=== PATIENT | male | born 1960 | race Caucasian/White ===

== ENCOUNTER 2019-05-11 06:37 | Inpatient (IN) | payer BC ==
--- NOTE | 2019-05-02 15:23 | HP ---
HISTORY AND PHYSICAL: DATE OF ADMISSION/SURGERY: 05/11/19 DATE OF OFFICE VISIT: 04/30/19 SURGEON: Valerie Ruiz MD * (DICTATED BY NIC DURAN) PROCEDURE: Left total knee arthroplasty. CHIEF COMPLAINT: Left knee pain. HISTORY OF PRESENT ILLNESS: Mr. Zarate is a 58-year-old gentleman with complaints of left knee pain secondary to end-stage osteoarthritis. He has failed conservative treatment and elected to proceed with a left total knee arthroplasty. PAST MEDICAL HISTORY: Diabetes. PAST SURGICAL HISTORY: Umbilical hernia repair, left knee scope, tonsillectomy , adenoidectomy. CURRENT MEDICATIONS: 1. Humira. 2. Tramadol as needed. ALLERGIES: None. FAMILY HISTORY: Diabetes and cancer. SOCIAL HISTORY: He is a 58-year-old gentleman, lives with his and 2 children. He smokes a pack a day of cigarettes and drinks 2 beers per night. REVIEW OF SYSTEMS: A complete 14-point review of systems was reviewed with the patient. It was positive for diabetes. He denies history of DVT, PE, hepatitis , HIV, or anesthesia problems. PHYSICAL EXAMINATION GENERAL: He is a well developed, well nourished, in no acute distress. VITAL SIGNS: He stands 70 inches tall, weighs 226 pounds. Blood pressure is 132/88, heart rate 61. HEENT: Normocephalic, atraumatic. NECK: Supple. No palpable lymph nodes. PULMONARY: The lungs are clear to auscultation bilaterally. CARDIO: Regular rate and rhythm. Strong S1, S2. ABDOMEN: Soft, nontender, nondistended. NEUROLOGIC: He is alert and oriented x3. MUSCULOSKELETAL: Left lower extremity: Skin is intact. There are no open wounds or abrasions. He ambulates with an antalgic type gait. Range of motion is 10 to 120 degrees of flexion. He is able to dorsiflex and plantarflex. He has a 2+ dorsalis pedis pulse and intact sensation. ASSESSMENT AND PLAN: Mr. Zarate is a 58-year-old gentleman with end-stage osteoarthritis of the left knee. He has failed conservative treatment and elected to proceed with a left total knee arthroplasty. The surgery is scheduled for 05/11/[address] Ruiz discussed the risks and benefits of the surgery at today's visit and all of his questions were answered. He will follow up with Dr. Ruiz 2 weeks after the surgery. NIC DURAN [id number]/[facility] #: [id number] PRANAV
[~2019-05-11 06:37] MED LIST: Acetaminophen TAB* 325 MG PO ONE; Buffered Lidocaine 1% SYRIN* 1 ML/SYRINGE INTRADERM ONE; Gabapentin CAP(*) 300 MG PO ONE; Lactated Ringers 1000 ML Bag* 1,000 ML IV SCH; Tranexamic Acid 1,000 MG in NS 0.9% 50 ML* (outpatient use) IV SCH; celeCOXIB CAP* 200 MG PO ONE
--- OUTSIDE RECORDS SUMMARY | 2019-05-11 06:39 | XMS REPORT | Continuity of Care Document ---
:1960 External Reference #:[id number] Author Name Matt Soto NP (transmitted by agent of provider Simona Gilliam) Address [address], [place] [address] Care Team Providers Name Role Phone Pari Cadena MD - Internal Medicine Care Team Information Type Copy Examiner Problems Active Problems Provider Date Localized, primary osteoarthritis Valerie Ruiz M.D. Onset: 01/02/2018 Current tear of medial cartilage AND/OR meniscus Valerie Ruiz M.D. Onset: of knee Current tear of lateral cartilage AND/OR Valerie Ruiz M.D. Onset: 09/06/2018 meniscus of knee Stool DNA-based colorectal cancer screening Claudia Avila NP Onset: 2018 positive Psoriasis Claudia Avila NP Onset: 01/08/2019 Gastroesophageal reflux disease Claudia Avila NP Onset: 01/08/2019 Type 2 diabetes mellitus Matt Soto NP Onset: 03/05/2019 Social History Type Date Description Comments Sex Unknown Tobacco Use Start: Unknown Heavy tobacco smoker (more than 10 cigarettes/day) Smoking Status Reviewed: 04/12/19 Heavy tobacco smoker (more than 10 cigarettes/day) ETOH Use Currently consumes 21 drinks/week alcohol Tobacco Use Start: Unknown Heavy tobacco smoker 1 PPD since age 17 (more than 10 cigarettes/day) Recreational Drug Use Never Used Drugs Exercise Type/Frequency Exercises regularly Plays golf frequently Allergies, Adverse Reactions, Alerts Description No Known Drug Allergies Medications Active Medications SIG Qnty Indications Ordering Date Provider Nicotrol 1 cartridges every 168units F17.210 Matt Soto NP 04/12/2019 10mg 2 hours as needed Inhaler Humira Pen Unknown PNKT History Medications Suprep Bowel Prep Kit take according to 1units Claudia Avila, 01/08/2019 - your physician's PUNCHING MACHINE OPERATOR 03/04/2019 17.5-3.13-1.6GM/177ML instructions the Solution day before your procedure. split the dose as directed. Medications Administered in Office Medication SIG Qnty Indications Ordering Provider Date Depomedrol 40MG Valerie Ruiz M.D. 08/11/2018 Injection Depomedrol 40MG Valerie Ruiz M.D. 05/19/2018 Injection Depomedrol 40MG Valerie Ruiz M.D. 01/02/2018 Injection Trishaomedrol 40MG Valerie Ruiz M.D. 12/12/2015 Injection Immunizations Description No Information Available Vital Signs Date Vital Result Comment 04/12/2019 8:40am Height 70 inches 5'10" Weight 230.25 lb Heart Rate 54 /min BP Systolic 137 mmHg BP Diastolic 79 mmHg Body Temperature 97.7 F O2 % BldC Oximetry 97 % BMI (Body Mass Index) 33.0 kg/m2 04/04/2019 7:54am Height 70 inches 5'10" Weight 226.00 lb Heart Rate 59 /min BP Systolic 138 mmHg BP Diastolic 92 mmHg Body Temperature 96.1 F Pain Level 6 BMI (Body Mass Index) 32.4 kg/m2 Results Test Date Facility Test Result H/L Range Note Order [employer] [facility] In-House EKG <pending> 9 Laboratory test [employer] [facility] Hemoglobin A1c 6.1 5-7 finding 9 Laboratory test [facility] Surgical SEE RESULT 1 finding [address] [place] [address] [phone] CBC No Diff [facility] White Blood 6.8 10^3/uL Normal 3.5-10.[address] [place] [address] [phone] Red Blood Count 5.06 10^6/uL Normal 4.18-5.48 Hemoglobin 17.8 g/dL Normal 14.0-18.0 Hematocrit 50 % Normal 42-52 Mean Corpuscular Volume 100 fL High 80-94 Mean Corpuscular Hemoglobin 35 pg High 27-31 Mean Corpuscular HGB Conc 35 g/dL Normal 31-36 Red Cell Distribution Width 13 % Normal 10-15 Platelet Count 161 10^3/uL Normal 150-450 Mean Platelet Volume 8.9 fL Normal 7.4-10.4 Comp Metabolic 01/11/2019 [facility] Sodium 139 mmol/L Normal 135-[address] [place] [address] [phone] Potassium 4.1 mmol/L Normal 3.5-5.0 Chloride 106 mmol/L Normal 101-111 Co2 Carbon Dioxide 28 mmol/L Normal 22-32 Anion Gap 5 mmol/L Normal 2-11 Glucose 117 mg/dL High 70-100 Blood Urea Nitrogen 24 mg/dL Normal 6-24 Creatinine 1.03 mg/dL Normal 0.67-1.17 BUN/Creatinine Ratio 23.3 High 8-20 Calcium 9.6 mg/dL Normal 8.6-10.3 Total Protein 6.3 g/dL Low 6.4-8.9 Albumin 4.2 g/dL Normal 3.2-5.2 Globulin 2.1 g/dL Normal 2-4 Albumin/Globulin Ratio 2.0 Normal 1-3 Total Bilirubin 0.50 mg/dL Normal 0.2-1.0 Alkaline Phosphatase 55 U/L Normal 34-104 Alt 17 U/L Normal 7-52 Ast 15 U/L Normal 13-39 Egfr Non- 74.4 >60 Egfr 90.1 >60 2 Liver 01/11/2019 [facility] Direct 0.10 Normal 0.03-0.[address] Bilirubin mg/[place] [address] [phone] Indirect Bilirubin 0.4 mg/dL Normal 0.3-1.0 1 SEE RESULT BELOW Name: ALBAN NOBLE : [address]: Saúl Baldwin MD Acct: [id number] Unit: [id number] AGE: 58 Location: ENDO Re03/02/19 SEX: M Status: REG REF SPEC: [id number] RAVEN: 03/02/19- SUBM DR: Saúl Baldwin MD REQ: [id number] RECD: 03/02/19 STATUS: FLETCHER ARNETT DR: Sharmaine Grubbs MD _ ORDERED: LEVEL 4/4 FINAL DIAGNOSIS 1. Colon, 2 cm, biopsy: -- Tubular adenoma. -- No high grade dysplasia or malignancy. 2. Colon, hepatic flexure, biopsy: -- Hyperplastic polyp. 3. Colon, transverse, biopsy: -- Hyperplastic polyp. 4. Colon, sigmoid, biopsy: -- Hyperplastic polyp. CLINICAL HISTORY No symptoms; positive Cologuard; usual bowel habit - twice a day POST-OPERATIVE DIAGNOSIS Colonoscopy: to cecum - loopy but easy; excellent prep; conclusions: (4) polyps GROSS DESCRIPTION 1. The specimen is received in formalin labeled, Rectal Polyp at 2 cm Biopsy, and consists of two clemente-pink irregular to polypoid soft tissue fragments measuring 0.4 x 0.4 x 0.3 cm and 0.5 x 0.5 by up to 0.3 cm, which are entirely submitted in one cassette. CONTINUED ON NEXT PAGE DEPARTMENT OF PATHOLOGY, [address] [place] [address] Tom Marshall M.D. Director CHUCK # [id number] RUN DATE: 03/05/19 [facility] LAB LIVE PAGE 2 Patient: ALBAN NOBLE [id number] (Continued) GROSS DESCRIPTION (Continued) 2. The specimen is received in formalin labeled, Biopsy Hepatic Flexure Polyp, and consists of two clemente-pink irregular to polypoid soft tissue fragments measuring 0.5 x 0.5 x 0.2 cm and 0.6 x 0.4 x 0.3 cm, which are entirely submitted in one cassette. 3. The specimen is received in formalin labeled, Transverse Colon Polyp, and consists of two clemente-pink irregular to polypoid soft tissue fragments measuring 0.5 x 0.3 x 0.3 cm and 2.8 x 0.4 x 0.2 cm, which are entirely submitted in one cassette. 4. The specimen is received in formalin labeled, Sigmoid Colon Polyp, and consists of a 1.4 by up to 0.5 x 0.2 cm clemente-white pink U-shaped to polypoid soft tissue fragment, which is inked, serially sectioned and submitted entirely in one cassette. Signed by and Reported on: Tom Marshall MD 07/12 1233 END OF REPORT DEPARTMENT OF PATHOLOGY, [address] [place] [address] Tom Marshall M.D. Director [facility] # [id number] 2 Because ethnic data is not always readily available, this report includes an eGFR for both -Americans and non- Americans. The National Kidney Disease Education Program (NKDEP) does not endorse the use of the MDRD equation for patients that are not between the ages of 18 and 70, are , have extremes of body size, muscle mass, or nutritional status, or are non- or non-. According to the National Kidney Foundation, irrespective of diagnosis, the stage of the disease is based on the level of kidney function: Stage Description GFR(mL/min/1.73 m(2)) 1 Kidney damage with normal or decreased GFR 90 2 Kidney damage with mild decrease in GFR 60-89 3 Moderate decrease in GFR 30-59 4 Severe decrease in GFR 15-29 5 Kidney failure <15 (or dialysis) Procedures Date Code Description Status 04/12/2019 90832 EKG Tracing & Interpretation Completed 03/02/2019 05364 Colonoscopy Flexible Remove Tumor/Polyp/Lesion Snare Completed Technique 03/02/2019 68207359 Colonoscopy Completed Medical Devices Description No Information Available Encounters Type Date Location Provider Dx Diagnosis Office Visit 03/12/2019 [facility] Internal Matt Soto NP E11.9 Type 2 diabetes 10:00a Medicine - Ccmob mellitus without complications I10 Essential (primary) hypertension Office Visit 01/08/2019 9:15a [facility]astro[facility] Claudia Avila Z80.0 Family history PUNCHING MACHINE OPERATOR of malignant neoplasm of digestive organs Z12.11 Encounter for screening for malignant neoplasm of colon K21.9 Gastro-esophageal reflux disease without esophagitis L40.0 Psoriasis vulgaris Office Visit 11/02/2018 7:40a [facility]at[facility] Jase Keita MD L40.0 Psoriasis vulgaris Assessments Date Code Description Provider 04/12/2019 Z01.818 Encounter for other preprocedural Matt Brittany, PUNCHING MACHINE OPERATOR examination 04/12/2019 M17.12 Unilateral primary osteoarthritis, left knee Matt Brittany, PUNCHING MACHINE OPERATOR 04/12/2019 E11.9 Type 2 diabetes mellitus without Matt Brittany, PUNCHING MACHINE OPERATOR complications 04/12/2019 I10 Essential (primary) hypertension Matt Brittany, PUNCHING MACHINE OPERATOR 04/12/2019 L40.0 Psoriasis vulgaris Matt Brittany, PUNCHING MACHINE OPERATOR 04/12/2019 F17.210 Nicotine dependence, cigarettes, Mattmo Soto, PUNCHING MACHINE OPERATOR uncomplicated 04/04/2019 M25.562 Pain in left knee Valerie Ruiz M.D. 04/04/2019 M25.462 Effusion, left knee Valerie Ruiz M.D. 04/04/2019 M17.12 Unilateral primary osteoarthritis, left knee Valerie Ruiz M.D. 04/04/2019 M21.062 Valgus deformity, not elsewhere classified, Valerie Ruiz M.D. left knee 03/12/2019 E11.9 Type 2 diabetes mellitus without Matt Brittany, PUNCHING MACHINE OPERATOR complications 03/12/2019 I10 Essential (primary) hypertension Mattmo Soto, PUNCHING MACHINE OPERATOR 03/02/2019 D12.8 Benign neoplasm of rectum Saúl Baldwin MD 03/02/2019 K63.5 Polyp of colon Saúl Baldwin MD 03/02/2019 R19.5 Other fecal abnormalities Saúl Baldwin MD 01/08/2019 Z80.0 Family history of malignant neoplasm of Claudia Avila NP digestive organs 01/08/2019 Z12.11 Encounter for screening for malignant Claudia Avila NP neoplasm of colon 01/08/2019 K21.9 Gastro-esophageal reflux disease without Claudiadiane Avila, PUNCHING MACHINE OPERATOR esophagitis 01/08/2019 L40.0 Psoriasis vulgaris Claudia Avila, JARAD 11/02/2018 L40.0 Psoriasis vulgaris Jase Keita MD 10/30/2018 S83.272D Complex tear of lateral meniscus, current Valerie Ruiz M.D. injury, left knee, 10/30/2018 M17.12 Unilateral primary osteoarthritis, left knee Valerie Ruiz M.D. 10/30/2018 M25.562 Pain in left knee Valerie Ruiz M.D. Plan of Treatment Future Appointment(s):04/20/2019 11:40 am - Jase Keita MD at [facility] Kovclxdeeab38/18/2019 7:30 am - Valerie Ruiz M.D. at [facility].04/30/2019 8:45 am - Valerie Ruiz M.D. at [facility]09/12/2019 8:40 am - [facility] - Matt Soto, JARADZ01.818 Encounter for other preprocedural examinationComments:Try to reduce alcohol consumption to under two drinks daily , especially leading up to the surgery. As long as your labs are normal I do not see any contraindications to your surgery.You should avoid aspirin, NSAIDs ( ibuprofen, Motrin, aleve) and supplements 7 days prior to the procedure.M17.12 Unilateral primary osteoarthritis, left kneeE11.9 Type 2 diabetes mellitus without phmuxfchmqwpwC21 Essential (primary) fsgxkrlafqaaO53.0 Psoriasis kmajiwqiL05.210 Nicotine dependence, cigarettes, uncomplicatedNew Medication: Nicotrol 10 mg - 1 cartridges every 2 hours as neededComments:If you decide to quit smoking and need assistance please let me know. Functional Status Description No Information Available Mental Status Description No Information Available Referrals Description No Information Available
--- OUTSIDE RECORDS SUMMARY | 2019-05-11 06:39 | XMS REPORT | Continuity of Care Document ---
:1960 External Reference #:[id number] Author Name Valerie Ruiz M.D. 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 Problems Provider Date Localized, primary [...] (more than 10 cigarettes/day) Smoking Status Reviewed: 04/30/19 Heavy tobacco smoker (more than 10 cigarettes/day) ETOH Use Currently consumes 21 drinks/week alcohol Tobacco Use Start: Unknown Heavy tobacco smoker 1 PPD since age 17 (more than 10 cigarettes/day) Recreational Drug Use Never Used Drugs Exercise Type/Frequency Exercises regularly Plays golf frequently Allergies, Adverse Reactions, Alerts Description No Known Drug Allergies Medications Active Medications SIG Qnty Indications Ordering Date Provider Tramadol HCL 1-2 tablets every 28tabs Matt Soto NP 04/13/2019 50mg 12 hours as needed Tablets for pain. Nicotrol 1 cartridges every 168units F17.210 Matt Soto NP 04/12/2019 10mg 2 hours as needed Inhaler Humira Pen Unknown PNKT History Medications Suprep Bowel Prep Kit take according to 1units Claudia Avila, 01/08/2019 - your physician's BOAT TESTER 03/04/2019 17.5-3.13-1.6GM/177ML instructions the Solution day before your procedure. split the dose as directed. Medications Administered in Office Medication SIG Qnty Indications Ordering Provider Date Depomedrol 40MG Valerie Ruiz M.D. 08/11/2018 Injection Depomedrol 40MG Valerie Ruiz M.D. 05/19/2018 Injection Depomedrol 40MG Valerie Ruiz M.D. 01/02/2018 Injection Depomedrol 40MG Valerie Ruiz M.D. 12/12/2015 Injection Immunizations Description No Information Available Vital Signs Date Vital Result Comment 04/30/2019 8:48am Height 70 inches 5'10" Weight 230.00 lb Heart Rate 61 /min BP Systolic 132 mmHg BP Diastolic 88 mmHg Respiratory Rate 18 /min Body Temperature 97.2 F Pain Level 3 BMI (Body Mass Index) 33.0 kg/m2 04/12/2019 8:40am Height 70 inches 5'10" Weight 230.25 lb Heart Rate 54 /min BP Systolic 137 mmHg BP Diastolic 79 mmHg Body Temperature 97.7 F O2 % BldC Oximetry 97 % BMI (Body Mass Index) 33.0 kg/m2 Results Test Date Facility Test Result H/L Range Note Type & Screen 04/20/2019 [facility] Patient Blood A Positive [address] [place] [address] [phone] Antibody Screen NEGATIVE CBC Auto 04/20/2019 [facility] White Blood 6.2 10^3/uL Normal 3.5-10.[address] [place] [address] [phone] Red Blood Count 4.98 10^6/uL Normal 4.18-5.48 Hemoglobin 17.4 g/dL Normal 14.0-18.0 Hematocrit 49 % Normal 42-52 Mean Corpuscular Volume 98 fL High 80-94 Mean Corpuscular Hemoglobin 35 pg High 27-31 Mean Corpuscular HGB Conc 36 g/dL Normal 31-36 Red Cell Distribution Width 14 % Normal 10-15 Platelet Count 169 10^3/uL Normal 150-450 Mean Platelet Volume 9.3 fL Normal 7.4-10.4 Abs Neutrophils 3.6 10^3/uL Normal 1.5-7.7 Abs Lymphocytes 1.7 10^3/uL Normal 1.0-4.8 Abs Monocytes 0.8 10^3/uL Normal 0-0.8 Abs Eosinophils 0.1 10^3/uL Normal 0-0.6 Abs Basophils 0.1 10^3/uL Normal 0-0.2 Abs Nucleated RBC 0.0 10^3/uL Granulocyte % 57.5 % Lymphocyte % 26.6 % Monocyte % 13.0 % Eosinophil % 1.8 % Basophil % 1.1 % Nucleated Red Blood Cells % 0.0 Urine Culture And 04/20/2019 [facility] Urine SEE RESULT [address] Culture BELOW [place], [place] [id number] [phone] Laboratory test 04/20/2019 [facility] Partial 45.1 seconds High 26.[address] Thrombo Time -38. [place] [address] PTT 0 [phone] Inr/Protime 04/20/2019 [facility] Inr 0.94 Normal 0.[address] -1.0 [place] [address] 9 [phone] Urinalysis Profile 04/20/2019 [facility] Urine Color Yellow [address] [place] [address] [phone] Urine Appearance Clear Urine Specific [place] 1.021 Normal 1.010-1.030 Urine pH 6.0 Normal 5-9 Urine Urobilinogen Negative Negative Urine Ketones Negative Negative Urine Protein 1+(30 mg/dL) Abnormal Negative Urine Leukocytes Negative Negative Urine Blood 2+ Abnormal Negative Urine Nitrite Negative Negative Urine Bilirubin Negative Negative Urine Glucose Negative Negative Urine White Blood Cell Trace(0-5/hpf) Absent Urine Red Blood Cell 2+(6-10/hpf) Abnormal Absent Urine Bacteria Absent Absent Comp Metabolic 04/20/2019 [facility] Sodium 139 mmol/L Normal 135-[address] [place] [address] [phone] Potassium 4.3 mmol/L Normal 3.5-5.0 Chloride 107 mmol/L Normal 101-111 Co2 Carbon Dioxide 27 mmol/L Normal 22-32 Anion Gap 5 mmol/L Normal 2-11 Glucose 102 mg/dL High 70-100 Blood Urea Nitrogen 20 mg/dL Normal 6-24 Creatinine 0.83 mg/dL Normal 0.67-1.17 BUN/Creatinine Ratio 24.1 High 8-20 Calcium 9.3 mg/dL Normal 8.6-10.3 Total Protein 6.2 g/dL Low 6.4-8.9 Albumin 4.3 g/dL Normal 3.2-5.2 Globulin 1.9 g/dL Low 2-4 Albumin/Globulin Ratio 2.3 Normal 1-3 Total Bilirubin 0.40 mg/dL Normal 0.2-1.0 Alkaline Phosphatase 49 U/L Normal 34-104 Alt 16 U/L Normal 7-52 Ast 14 U/L Normal 13-39 Egfr Non- 95.5 >60 Egfr 115.5 >60 4 Quantiferon-TB 04/20/2019 [facility] QuantiferonTb Negative Negative [address] [place] [place] [address] [phone] TB1 Ag minus Nil Result 0.00 IU/mL TB2 Ag minus Nil Result -0.01 IU/mL Mitogen minus Nil Result 13.58 IU/mL Nil Result 0.07 IU/mL Laboratory test 03/12/2019 [facility] Hemoglobin A1c 6.1 5-7 finding Laboratory test 03/02/2019 [facility] Surgical SEE RESULT [address] [place] [address] [phone] CBC No Diff 01/11/2019 [facility] White Blood 6.8 10^3/uL Normal 3.5-10.[address] [place] [address] [phone] Red Blood Count 5.06 10^6/uL Normal 4.18-5.48 Hemoglobin 17.8 g/dL Normal 14.0-18.0 Hematocrit 50 % Normal 42-52 Mean Corpuscular Volume 100 fL High 80-94 Mean Corpuscular Hemoglobin 35 pg High 27-31 Mean Corpuscular HGB Conc 35 g/dL Normal 31-36 Red Cell Distribution Width 13 % Normal 10-15 Platelet Count 161 10^3/uL Normal 150-450 Mean Platelet Volume 8.9 fL Normal 7.4-10.4 Comp Metabolic 01/11/2019 [facility] Sodium 139 mmol/L Normal 135-[address] [place] [address] [phone] Potassium 4.1 mmol/L Normal 3.5-5.0 Chloride 106 [...] Egfr Non- 74.4 >60 Egfr 90.1 >60 7 Liver 01/11/2019 [facility] Direct 0.10 Normal 0.03-0.[address] Bilirubin mg/[place] [address] [phone] Indirect Bilirubin 0.4 mg/dL Normal 0.3-1.0 1 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 END OF REPORT DEPARTMENT OF PATHOLOGY, [address] [place] [address] Tom Marshall M.D. Director [facility] # [id number] 3 Standard intensity warfarin therapeutic range: 2.0-3.0 High intensity warfarin therapeutic range: 2.5-3.5 4 Because ethnic data is not always readily [...] 15-29 5 Kidney failure <15 (or dialysis) 5 M. tuberculosis infection NOT likely 6 SEE RESULT BELOW Name: ALBAN NOBLE : [address]: Saúl Baldwin MD Acct: [id number] Unit: [id number] AGE: 58 Location: ENDO Re03/02/19 SEX: M Status: REG REF SPEC: [id number] RAVEN: 03/02/19- SUBM DR: Saúl Baldwin MD REQ: [id number] RECD: 03/02/19204 STATUS: FLETCHER ARNETT DR: Sharmaine Grubbs MD [...] CONTINUED ON NEXT PAGE DEPARTMENT OF PATHOLOGY, [address] [place] [address] Tom Marshall M.D. Director [facility] # [id number] RUN DATE: 03/05/19 [facility] LAB LIVE PAGE 2 Patient: ALBAN NOBLE Delphine [id number] (Continued) GROSS DESCRIPTION (Continued) 2. The specimen [...] 1233 END OF REPORT DEPARTMENT OF PATHOLOGY, [address] [place] [address] Tom Marshall M.D. Director [facility] # [id number] 7 Because ethnic data is not always readily [...] dialysis) Procedures Date Code Description Status 04/12/2019 34391 EKG Tracing & Interpretation Completed 03/02/2019 25690 Colonoscopy Flexible Remove Tumor/Polyp/Lesion Snare Completed Technique 03/02/2019 40957774 Colonoscopy Completed Medical Devices Description No Information Available Encounters Type Date Location Provider Dx Diagnosis Office Visit 04/20/2019 [facility] Dermatology Jase Keita MD L40.0 Psoriasis vulgaris 11:40a Z79.899 Other half-way (current) drug therapy Office Visit 04/12/2019 8:40a [facility] Internal Matt Soto, Z01.818 Encounter for other Medicine - BOAT TESTER preprocedural Ccmob examination M17.12 Unilateral primary osteoarthritis, left knee E11.9 Type 2 diabetes mellitus without complications I10 Essential (primary) hypertension L40.0 Psoriasis vulgaris F17.210 Nicotine dependence, cigarettes, uncomplicated Office Visit 04/04/2019 8:00a [facility] Valerie Ruiz, M25.562 Pain in left at [place] M.D. knee M25.462 Effusion, left knee M17.12 Unilateral primary osteoarthritis, left knee M21.062 Valgus deformity, not elsewhere classified, left knee Office Visit 03/12/2019 10:00a [facility] Internal Matt Soto, E11.9 Type 2 diabetes Medicine - Ccmob BOAT TESTER mellitus without complications I10 Essential (primary) hypertension Office Visit 01/08/2019 9:15a [facility] Gastroenterology Claudia Avila, Z80.0 Family history BOAT TESTER of malignant neoplasm of digestive organs Z12.11 Encounter for screening for malignant neoplasm of colon K21.9 Gastro-esophageal reflux disease without esophagitis L40.0 Psoriasis vulgaris Office Visit 11/02/2018 7:40a [facility] Dermatology Jase Keita MD L40.0 Psoriasis vulgaris Assessments Date Code Description Provider 04/20/2019 L40.0 Psoriasis vulgaris Jase Keita MD 04/20/2019 Z79.899 Other half-way (current) drug therapy Jase Keita MD 04/12/2019 R00.1 Bradycardia, unspecified Pari Cadena MD 04/12/2019 Z01.818 Encounter for other preprocedural Matt Brittany, JARAD examination 04/12/2019 M17.12 Unilateral primary osteoarthritis, left knee Matt Brittany, BOAT TESTER 04/12/2019 E11.9 Type 2 diabetes mellitus without Matt Brittany, BOAT TESTER complications 04/12/2019 I10 Essential (primary) hypertension Mattmo Soto, BOAT TESTER 04/12/2019 L40.0 Psoriasis vulgaris Matt Brittany, BOAT TESTER 04/12/2019 F17.210 Nicotine dependence, cigarettes, Matt Soto, JARAD uncomplicated 04/04/2019 M25.562 Pain in left knee Valerie Ruiz M.D. 04/04/2019 M25.462 Effusion, left knee Valerie Ruiz M.D. 04/04/2019 M17.12 Unilateral primary osteoarthritis, left knee Valerie Ruiz M.D. 04/04/2019 M21.062 Valgus deformity, not elsewhere classified, Valerie Ruiz M.D. left knee 03/12/2019 E11.9 Type 2 diabetes mellitus without Matt Brittany, BOAT TESTER complications 03/12/2019 I10 Essential (primary) hypertension Matt Soto, JARAD 03/02/2019 D12.8 Benign neoplasm of rectum Saúl Baldwin MD 03/02/2019 K63.5 Polyp of colon Saúl Baldwin MD 03/02/2019 R19.5 Other fecal abnormalities Saúl Baldwin MD 01/08/2019 Z80.0 Family history of malignant neoplasm of Claudia Avila, BOAT TESTER digestive organs 01/08/2019 Z12.11 Encounter for screening for malignant Claudia Avila, BOAT TESTER neoplasm of colon 01/08/2019 K21.9 Gastro-esophageal reflux disease without Claudia Avila, BOAT TESTER esophagitis 01/08/2019 L40.0 Psoriasis vulgaris Claudia Avila, BOAT TESTER 11/02/2018 L40.0 Psoriasis vulgaris Jase Keita MD 10/30/2018 S83.272D Complex tear of lateral meniscus, current Valerie Ruiz M.D. injury, left knee, 10/30/2018 M17.12 Unilateral primary osteoarthritis, left knee Valerie Ruiz M.D. 10/30/2018 M25.562 Pain in left knee Valerie Ruiz M.D. Plan of Treatment Future Appointment(s):05/21/2019 9:15 am - Valerie Ruiz M.D. at [facility]05/11/2019 7:30 am - TARA Monge at [facility]05/11/2019 7:30 am - NIC Schultz at [facility] at [id number]/18/2019 7:40 am - Jase Keita MD at [facility]05/11/2019 7:30 am - Valerie Ruiz M.D. at [facility] at [id number]/12/2019 8:40 am - Matt Soto NP at [facility] Internal Medicine - [facility] Functional Status Description No Information Available Mental Status Description No Information Available Referrals Description No Information Available
--- OUTSIDE RECORDS SUMMARY | 2019-05-11 06:40 | XMS REPORT | Continuity of Care Document ---
:1960 External Reference #:[id number] Author Name Valerie Ruiz M.D. 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 Problems Provider Date Localized, primary [...] (more than 10 cigarettes/day) Smoking Status Reviewed: 04/04/19 Heavy tobacco smoker (more than 10 cigarettes/day) ETOH Use Currently consumes 21 drinks/week alcohol Tobacco Use Start: Unknown Heavy tobacco smoker 1 PPD since age 17 (more than 10 cigarettes/day) Recreational Drug Use Never Used Drugs Exercise Type/Frequency Exercises regularly Plays golf frequently Allergies, Adverse Reactions, Alerts Description No Known Drug Allergies Medications Active Medications SIG Qnty Indications Ordering Provider Date Humira Pen Unknown PNKT History Medications Suprep Bowel Prep Kit take according to 1units Claudia Avila 01/08/2019 - your physician's DIRECTOR ON AIR 03/04/2019 17.5-3.13-1.6GM/177ML instructions the Solution day before [...] Available Vital Signs Date Vital Result Comment 04/04/2019 7:54am Height 70 inches 5'10" Weight 226.00 lb Heart Rate 59 /min BP Systolic 138 mmHg BP Diastolic 92 mmHg Body Temperature 96.1 F Pain Level 6 BMI (Body Mass Index) 32.4 kg/m2 03/12/2019 9:53am Height 70 inches 5'10" Weight 223.38 lb Heart Rate 60 /min BP Systolic 141 mmHg BP Diastolic 88 mmHg BP Systolic Recheck 144 mmHg BP Diastolic Recheck 90 mmHg Body Temperature 98.1 F O2 % BldC Oximetry 97 % BMI (Body Mass Index) 32.0 kg/m2 Results Test Date Facility Test Result H/L Range Note Laboratory test [facility] In House Hemoglobin A1c 6.1 5-7 finding 9 Laboratory test [facility] Surgical SEE RESULT 1 finding [address] [place] [address] [phone] CBC No Diff [facility] White Blood 6.8 10^3/uL Normal 3.5-10.[address] [place] [address] [phone] Red Blood Count 5.06 10^6/uL Normal 4.18-5.48 Hemoglobin 17.8 g/dL Normal 14.0-18.0 Hematocrit 50 % Normal 42-52 Mean Corpuscular Volume 100 fL High 80-94 Mean Corpuscular Hemoglobin 35 pg High 27-31 Mean Corpuscular HGB Conc 35 g/dL Normal 31-36 Red Cell Distribution Width 13 % Normal 10-15 Platelet Count 161 10^3/uL Normal 150-450 Mean Platelet Volume 8.9 fL Normal 7.4-10.4 Comp Metabolic 01/11/2019 [facility] Sodium 139 mmol/L Normal 135-[address] [place] [address] [phone] Potassium 4.1 mmol/L Normal 3.5-5.0 Chloride 106 [...] >60 Egfr 90.1 >60 2 Liver 01/11/2019 [facility] Direct 0.10 Normal 0.03-0.[address] Bilirubin mg/[place] [address] [phone] Indirect Bilirubin 0.4 mg/dL Normal 0.3-1.0 1 SEE RESULT BELOW Name: LASHA NOBLE Delphine : [address]: Saúl Baldwin MD Acct: [id number] Unit: [id number] AGE: 58 Location: ENDO Re03/02/19 SEX: M Status: REG REF SPEC: [id number] RAVEN: 03/02/19- SUBM DR: Saúl Baldwin MD REQ: [id number] RECD: 03/02/19 STATUS: FLETCHER ARNETT DR: Sharmaine [...] CONTINUED ON NEXT PAGE DEPARTMENT OF PATHOLOGY, [address] [place] [address] Tom Marshall M.D. Director [facility] # [id number] RUN DATE: 03/05/19 [facility] LAB LIVE PAGE 2 Patient: LASHA NOBLE [id number] (Continued) GROSS DESCRIPTION (Continued) 2. The specimen [...] 1233 END OF REPORT DEPARTMENT OF PATHOLOGY, [address] [place] [address] Tom Marshall M.D. Director [facility] # [id number] 2 Because ethnic data is not always [...] (or dialysis) Procedures Date Code Description Status 03/02/2019 65696 Colonoscopy Flexible Remove Tumor/Polyp/Lesion Snare Completed Technique 03/02/2019 16492920 Colonoscopy Completed Medical Devices Description No Information Available Encounters Type Date Location Provider Dx Diagnosis Office Visit 03/12/2019 [facility] Internal Matt Soto NP E11.9 Type 2 diabetes 10:00a Medicine - [facility] mellitus without complications I10 Essential (primary) hypertension Office Visit 01/08/2019 9:15a [facility] Gastroenterology Claudia Avila, Z80.0 Family history DIRECTOR ON AIR of malignant neoplasm of digestive organs Z12.11 Encounter for screening for malignant neoplasm of colon K21.9 Gastro-esophageal reflux disease without esophagitis L40.0 Psoriasis vulgaris Office Visit 11/02/2018 7:40a [facility] Dermatology Jase Keita MD L40.0 Psoriasis vulgaris Assessments Date Code Description Provider 04/04/2019 M25.562 Pain in left knee Valerie Ruiz M.D. 04/04/2019 M25.462 Effusion, left knee Valerie Ruiz M.D. 04/04/2019 M17.12 Unilateral primary osteoarthritis, left knee Valerie Joseph , M.D. 04/04/2019 M21.062 Valgus deformity, not elsewhere classified, Valerie Ruiz M.D. left knee 03/12/2019 E11.9 Type 2 diabetes mellitus without Matt Soto NP complications 03/12/2019 I10 Essential (primary) hypertension Matt Soto NP 03/02/2019 D12.8 Benign neoplasm of rectum Saúl Baldwin MD 03/02/2019 K63.5 Polyp of colon Saúl Baldwin MD 03/02/2019 R19.5 Other fecal abnormalities Saúl Baldwin MD 01/08/2019 Z80.0 Family history of malignant neoplasm of Claudia Avila NP digestive organs 01/08/2019 Z12.11 Encounter for screening for malignant Claudia Avila NP neoplasm of colon 01/08/2019 K21.9 Gastro-esophageal reflux disease without Claudia Avila NP esophagitis 01/08/2019 L40.0 Psoriasis vulgaris Claudia Avila NP 11/02/2018 L40.0 Psoriasis vulgaris Jase Keita MD 10/30/2018 S83.272D Complex tear of lateral meniscus, current Valerie Ruiz M.D. injury, left knee, 10/30/2018 M17.12 Unilateral primary osteoarthritis, left knee Valerie Ruiz M.D. 10/30/2018 M25.562 Pain in left knee Valerie Ruiz M.D. Plan of Treatment Future Appointment(s):04/30/2019 8:45 am - Valerie Ruiz M.D. at [facility]09/12/2019 8:40 am - [facility] Valerie Ruiz M.D.M25.562 Pain in left kneeFollow up:Follow up: 7-10 days before [id number] Effusion, left kneeM17.12 Unilateral primary osteoarthritis, left kneeM21.062 Valgus deformity, not elsewhere classified, left knee Functional Status Description No Information Available Mental Status Description No Information Available Referrals Description No Information Available
--- OUTSIDE RECORDS SUMMARY | 2019-05-11 06:40 | XMS REPORT | Continuity of Care Document ---
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 Problems Provider Date Localized, primary [...] 1units Claudia Avila, 01/08/2019 - your physician's WORK ENVIRONMENT SAFETY INSPECTOR 03/04/2019 17.5-3.13-1.6GM/177ML instructions the Solution day before [...] Facility Test Result H/L Range Note Order [facility] In-House EKG <pending> 9 Laboratory test [facility] In House Hemoglobin A1c 6.1 5-7 finding 9 Laboratory test [facility] Surgical SEE RESULT 1 finding [address] [place] [address] [phone] CBC No Diff [facility] White Blood 6.8 10^3/uL Normal 3.5-10.[address] [place] [address] [phone] Red Blood Count 5.06 10^6/uL Normal 4.18-5.48 Hemoglobin 17.8 g/dL Normal 14.0-18.0 Hematocrit 50 % Normal 42-52 Mean Corpuscular Volume 100 fL High 80-94 Mean Corpuscular Hemoglobin 35 pg High 27-31 Mean Corpuscular HGB Conc 35 g/dL Normal 31-36 Red Cell Distribution Width 13 % Normal 10-15 Platelet Count 161 10^3/uL Normal 150-450 Mean Platelet Volume 8.9 fL Normal 7.4-10.4 Comp Metabolic 01/11/2019 [facility] Sodium 139 mmol/L Normal 135-[address] [place] [address] [phone] Potassium 4.1 mmol/L Normal 3.5-5.0 Chloride 106 [...] >60 Egfr 90.1 >60 2 Liver 01/11/2019 [facility] Direct 0.10 Normal 0.03-0.[address] Bilirubin mg/[place] [address] [phone] Indirect Bilirubin 0.4 mg/dL Normal 0.3-1.0 1 SEE RESULT BELOW Name: ALBAN NOBLE : [address]: Saúl Baldwin MD Acct: [id number] Unit: [id number] AGE: 58 Location: ENDO Re03/02/19 SEX: M Status: REG REF SPEC: [id number] RAVEN: 03/02/19- SUBM DR: Saúl Baldwin MD REQ: [id number] RECD: 03/02/19 STATUS: FLETCHER ARNETT DR: Sharmaine [...] CONTINUED ON NEXT PAGE DEPARTMENT OF PATHOLOGY, [address] [place] [address] Tom Marshall M.D. Director [facility] # [id number] RUN DATE: 03/05/19 [facility] LAB LIVE PAGE 2 Patient: ALBAN NOBLE [id number] (Continued) GROSS DESCRIPTION (Continued) 2. The specimen [...] 1233 END OF REPORT DEPARTMENT OF PATHOLOGY, [address] [place] [address] Tom Marshall M.D. Director [facility] # [id number] 2 Because ethnic data is not always [...] dialysis) Procedures Date Code Description Status 04/12/2019 45518 EKG Tracing & Interpretation Completed 03/02/2019 51762 Colonoscopy Flexible Remove Tumor/Polyp/Lesion Snare Completed Technique 03/02/2019 80410538 Colonoscopy Completed Medical Devices Description No Information Available Encounters Type Date Location Provider Dx Diagnosis Office Visit 03/12/2019 [facility] Internal Matt Soto NP E11.9 Type 2 diabetes 10:00a Medicine - Ccmob mellitus without complications I10 Essential (primary) hypertension Office Visit 01/08/2019 9:15a [facility] Gastroenterology Claudia vAila Z80.0 Family history WORK ENVIRONMENT SAFETY INSPECTOR of malignant neoplasm of digestive organs Z12.11 Encounter for screening for malignant neoplasm of colon K21.9 Gastro-esophageal reflux disease without esophagitis L40.0 Psoriasis vulgaris Office Visit 11/02/2018 7:40a [facility] Dermatology Jase Keita MD L40.0 Psoriasis vulgaris Assessments Date Code Description Provider 04/12/2019 Z01.818 Encounter for other preprocedural Matt Brittany, WORK ENVIRONMENT SAFETY INSPECTOR examination 04/12/2019 M17.12 Unilateral primary osteoarthritis, left knee Matt Brittany, WORK ENVIRONMENT SAFETY INSPECTOR 04/12/2019 E11.9 Type 2 diabetes mellitus without Matt Brittany, WORK ENVIRONMENT SAFETY INSPECTOR complications 04/12/2019 I10 Essential (primary) hypertension Matt Brittany, WORK ENVIRONMENT SAFETY INSPECTOR 04/12/2019 L40.0 Psoriasis vulgaris Matt Brittany, WORK ENVIRONMENT SAFETY INSPECTOR 04/12/2019 F17.210 Nicotine dependence, cigarettes, Mattmo Soto, WORK ENVIRONMENT SAFETY INSPECTOR uncomplicated 04/04/2019 M25.562 Pain in left knee Valerie Ruiz M.D. 04/04/2019 M25.462 Effusion, left knee Valerie Ruiz M.D. 04/04/2019 M17.12 Unilateral primary osteoarthritis, left knee Valerie Ruiz M.D. 04/04/2019 M21.062 Valgus deformity, not elsewhere classified, Valerie Ruiz M.D. left knee 03/12/2019 E11.9 Type 2 diabetes mellitus without Matt Brittany, WORK ENVIRONMENT SAFETY INSPECTOR complications 03/12/2019 I10 Essential (primary) hypertension Mattmo Soto, WORK ENVIRONMENT SAFETY INSPECTOR 03/02/2019 D12.8 Benign neoplasm of rectum Saúl Baldwin MD 03/02/2019 K63.5 Polyp of colon Saúl Baldwin MD 03/02/2019 R19.5 Other fecal abnormalities Saúl Baldwin MD 01/08/2019 Z80.0 Family history of malignant neoplasm of Claudia Avila NP digestive organs 01/08/2019 Z12.11 Encounter for screening for malignant Claudia Avila NP neoplasm of colon 01/08/2019 K21.9 Gastro-esophageal reflux disease without Claudiadiane Avila, WORK ENVIRONMENT SAFETY INSPECTOR esophagitis 01/08/2019 L40.0 Psoriasis vulgaris Claudia Avila, JARAD 11/02/2018 L40.0 Psoriasis vulgaris Jase Keita MD 10/30/2018 S83.272D Complex tear of lateral meniscus, current Valerie Ruiz M.D. injury, left knee, 10/30/2018 M17.12 Unilateral primary osteoarthritis, left knee Valerie Ruiz M.D. 10/30/2018 M25.562 Pain in left knee Valerie Ruiz M.D. Plan of Treatment Future Appointment(s):04/20/2019 11:40 am - Jase Keita MD at [facility] Wbikfkskkdd63/18/2019 7:30 am - Valerie Ruiz M.D. at [facility].04/30/2019 8:45 am - Valerie Ruiz M.D. at [facility]09/12/2019 8:40 am - Matt Soto NP at [facility] - Matt Soto, JARADZ01.818 Encounter for other [...] left kneeE11.9 Type 2 diabetes mellitus without lvczfgnpjtwnrA86 Essential (primary) dwatzosoyigvI09.0 Psoriasis iowlbskaV11.210 Nicotine dependence, cigarettes, uncomplicatedNew Medication: Nicotrol 10 mg - 1 cartridges every 2 hours as neededComments:If you decide to quit smoking and need assistance please let me know. Functional Status Description No Information Available Mental Status Description No Information Available Referrals Description No Information Available
--- OUTSIDE RECORDS SUMMARY | 2019-05-11 06:40 | XMS REPORT | Continuity of Care Document ---
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 split the dose as directed. Aspirin take 1 by mouth 28tabs Valerie Ruiz, 09/20/2018 - 325mg Tablets twice a day for two M.D. 10/29/2018 weeks Percocet 1 by mouth every 6 28tabs Valerie Ruiz, 09/20/2018 - 5-325mg Tablets hours as needed M.D. 10/01/2018 pain Medications Administered in Office Medication SIG Qnty Indications Ordering Provider Date Depomedrol 40MG Valerie Ruiz M.D. 08/11/2018 Injection Depomedrol 40MG Valerie Ruiz M.D. 05/19/2018 Injection Depomedrol 40MG Valerie Ruiz M.D. 01/02/2018 Injection Depomedrol 40MG Valerie Ruiz M.D. 12/12/2015 Injection Immunizations Description No Information Available Vital Signs Date Vital Result Comment 03/12/2019 9:53am Height 70 inches 5'10" Weight 223.38 lb Heart Rate 60 /min BP Systolic 141 mmHg BP Diastolic 88 mmHg BP Systolic Recheck 144 mmHg BP Diastolic Recheck 90 mmHg Body Temperature 98.1 F O2 % BldC Oximetry 97 % BMI (Body Mass Index) 32.0 kg/m2 01/08/2019 9:17am Height 70 inches 5'10" Weight 230.00 lb Heart Rate 62 /min BP Systolic 140 mmHg BP Diastolic 84 mmHg O2 % BldC Oximetry 96 % BMI (Body Mass Index) 33.0 kg/m2 Results Test Date Facility Test Result H/L Range Note Laboratory test [facility] In House Hemoglobin A1c 6.1 5-7 finding 9 Laboratory test [facility] Surgical SEE RESULT 1 finding [address] [place] [address] [phone] CBC No Diff [facility] White Blood 6.8 10^3/uL Normal 3.5-10.[address] [place] [address] [phone] Red Blood Count 5.06 10^6/uL Normal 4.18-5.48 Hemoglobin 17.8 g/dL Normal 14.0-18.0 Hematocrit 50 % Normal 42-52 Mean Corpuscular Volume 100 fL High 80-94 Mean Corpuscular Hemoglobin 35 pg High 27-31 Mean Corpuscular HGB Conc 35 g/dL Normal 31-36 Red Cell Distribution Width 13 % Normal 10-15 Platelet Count 161 10^3/uL Normal 150-450 Mean Platelet Volume 8.9 fL Normal 7.4-10.4 Comp Metabolic 01/11/2019 [facility] Sodium 139 mmol/L Normal 135-[address] [place] [address] [phone] Potassium 4.1 mmol/L Normal 3.5-5.0 Chloride 106 [...] >60 Egfr 90.1 >60 2 Liver 01/11/2019 [facility] Direct 0.10 Normal 0.03-0.[address] Bilirubin mg/[place] [address] [phone] Indirect Bilirubin 0.4 mg/dL Normal 0.3-1.0 Lipid Profile 09/18/2018 [facility] Triglycerides 198 mg/dL 3, 4 (Trig/Chol/HDL) [address] [place] [address] [phone] Cholesterol 143 mg/dL 5 HDL Cholesterol 35.8 mg/dL 6 LDL Cholesterol 68 mg/dL 7 CBC Auto 09/18/2018 [facility] White Blood 8.2 10^3/uL Normal 3.5-10.[address] [place] [address] [phone] Red Blood Count 5.07 10^6/uL Normal 4.00-5.40 Hemoglobin 17.6 g/dL Normal 14.0-18.0 Hematocrit 51 % Normal 42-52 Mean Corpuscular Volume 100 fL High 80-94 Mean Corpuscular Hemoglobin 35 pg High 27-31 Mean Corpuscular HGB Conc 35 g/dL Normal 31-36 Red Cell Distribution Width 14 % Normal 10.5-15 Platelet Count 167 10^3/uL Normal 150-450 Mean Platelet Volume 9.5 fL Normal 7.4-10.4 Abs Neutrophils 5.5 10^3/uL Normal 1.5-7.7 Abs Lymphocytes 1.6 10^3/uL Normal 1.0-4.8 Abs Monocytes 0.8 10^3/uL Normal 0-0.8 Abs Eosinophils 0.1 10^3/uL Normal 0-0.6 Abs Basophils 0.1 10^3/uL Normal 0-0.2 Abs Nucleated RBC 0 10^3/uL Granulocyte % 67.7 % Lymphocyte % 19.6 % Monocyte % 10.2 % Eosinophil % 1.4 % Basophil % 1.1 % Nucleated Red Blood Cells % 0.1 Comp Metabolic 09/18/2018 [facility] Sodium 139 mmol/L Normal 135-[address] [place], [place] [address] [phone] Potassium 3.9 mmol/L Normal 3.5-5.0 Chloride 106 mmol/L Normal 101-111 Co2 Carbon Dioxide 29 mmol/L Normal 22-32 Anion Gap 4 mmol/L Normal 2-11 Glucose 149 mg/dL High 70-100 Blood Urea Nitrogen 18 mg/dL Normal 6-24 Creatinine 0.94 mg/dL Normal 0.67-1.17 BUN/Creatinine Ratio 19.1 Normal 8-20 Calcium 9.3 mg/dL Normal 8.6-10.3 Total Protein 6.1 g/dL Low 6.4-8.9 Albumin 4.4 g/dL Normal 3.2-5.2 Globulin 1.7 g/dL Low 2-4 Albumin/Globulin Ratio 2.6 Normal 1-3 Total Bilirubin 0.30 mg/dL Normal 0.2-1.0 Alkaline Phosphatase 48 U/L Normal 34-104 Alt 18 U/L Normal 7-52 Ast 14 U/L Normal 13-39 Egfr Non- 82.7 >60 Egfr 100.1 >60 8 Inr/Protime 09/18/2018 [facility] Inr 0.88 Normal 0.77-1.[address] [place] [address] [phone] 1 SEE RESULT BELOW Name: LASHA NOBLE : [address]: Saúl Baldwin MD Acct: [id number] Unit: [id number] AGE: 58 Location: ENDO Re03/02/19 SEX: M Status: REG REF SPEC: [id number] RAVEN: 03/02/19- [facility] DR: Saúl Baldwin MD REQ: [id number] RECD: 03/02/19 STATUS: FLETCHER ARNETT DR: Sharmaine [...] CONTINUED ON NEXT PAGE DEPARTMENT OF PATHOLOGY, [address] [place] [address] Tom Marshall M.D. Director [facility] # [id number] RUN DATE: 03/05/19 [facility] LAB LIVE PAGE 2 Patient: NOBLE,LASHA L [id number] (Continued) GROSS DESCRIPTION (Continued) 2. The specimen [...] 1233 END OF REPORT DEPARTMENT OF PATHOLOGY, [address] [place] [address] Tom Marshall M.D. Director [facility] # [id number] 2 Because ethnic data is not always [...] 15-29 5 Kidney failure <15 (or dialysis) 3 FASTING 4 Desirable: <150 Borderline High: 150-199 High: 200-499 Very High: >500 5 Desirable: <200 Borderline High: 200-239 High: >239 6 Low: <40 Desirable: 40-60 High: >60 7 Desirable: <100 Near Optimal: 100-129 Borderline High: 130-159 High: 160-189 Very High: >189 8 Because ethnic data is not always readily [...] dialysis) Procedures Date Code Description Status 03/02/2019 23663776 Colonoscopy Completed 09/21/2018 98953 Arthroscopy,Knee,Meniscectomy Media & Lateral Completed 09/21/2018 40593 Arthroscopy,Knee,Meniscectomy Media & Lateral Completed Medical Devices Description No Information Available Encounters Type Date Location Provider Dx Diagnosis Office Visit 01/08/2019 [facility] Gastroenterology Claudia Avial NP Z80.0 Family history of 9:15a malignant neoplasm of digestive organs Z12.11 Encounter for screening for malignant neoplasm of colon K21.9 Gastro-esophageal reflux disease without esophagitis L40.0 Psoriasis vulgaris Office Visit 11/02/2018 7:40a [facility] Dermatology Jase Keita MD L40.0 Psoriasis vulgaris Assessments Date Code Description Provider 03/12/2019 E11.9 Type 2 diabetes mellitus without Matt Soto NP complications 03/12/2019 I10 Essential (primary) hypertension Matt Soto NP 01/08/2019 Z80.0 Family history of malignant neoplasm [...] Pain in left knee Valerie Ruiz M.D. 10/02/2018 M25.562 Pain in left knee Valerie Ruiz M.D. 10/02/2018 M25.462 Effusion, left knee Valerie Ruiz M.D. 10/02/2018 S83.272D Complex tear of lateral meniscus, current Valerie Ruiz M.D. injury, left knee, 09/21/2018 S83.272A Complex tear of lat mensc, current injury, [place] Alexis RPA-C left knee, init 09/21/2018 S83.272A Complex tear of lat mensc, current injury, Valerie Ruiz M.D. left knee, init 09/21/2018 S83.242A Other tear of medial meniscus, current [place] Alexis RPA -C injury, left knee, in 09/21/2018 S83.242A Other tear of medial meniscus, current Valerie Ruiz M.D. injury, left knee, in 09/21/2018 M17.12 Unilateral primary osteoarthritis, left knee [place] Alexis RPA-C 09/21/2018 M17.12 Unilateral primary osteoarthritis, left knee Valerie Ruiz M.D. Plan of Treatment Future Appointment(s):09/12/2019 8:40 am - Matt Soto NP at [facility] Internal Medicine - [facility]03/12/2019 - Matt Soot NPE11.9 Type 2 diabetes mellitus without complicationsComments:Your A1c is 6.1%. This is good. Continue limiting carbohydrates in your diet.Follow up:6 months, 20 minRecommendations:See your research librarian every year. It is OK to go every 2 years if he finds no retinal damage from diabetes. Ask your research librarian to communicate his findings to us. See a broadcast producer every 6 months if you have numbness in your feet or a history of foot ulcers.I10 Essential (primary) hypertensionComments: Your blood pressure is elevated today. Try to check your blood pressure at least once weekly and record those readings and call with them in 4 weeks. If consistently running greater than 135/85 (eithernumber)we will need to start a medication. Goals 03/12/2019 - Matt Soto, JARADE11.9 Type 2 diabetes mellitus without complicationsGoal Hemoglobin A1c is less than 7.0%. Goal Blood pressure is less than 130/85. Functional Status Description No Information Available Mental Status Description No Information Available Referrals Refer to Reason for Referral Status Appt Date Saúl Baldwin MD Sent [address] [place] [address] [phone]
[2019-05-11] MEDS ORDERED: Gabapentin CAP(*) 300 MG ONE (07:05)
[2019-05-11] MEDS ORDERED: Acetaminophen TAB* 325 MG ONE (07:05)
[2019-05-11] MEDS ORDERED: celeCOXIB CAP* 200 MG ONE (07:06)
[2019-05-11] MEDS ORDERED: ceFAZolin 2 GM PREMIX in ORs 2 GM/50 ML BAG ONE (07:06)
[2019-05-11] MEDS ORDERED: ROPIVACAINE 5 MG/ML 30 ML BTL (0.5%) ONE ×2 (07:59→08:18)
[2019-05-11] MEDS ORDERED: Propofol* 500 MG/50 ML BTL ONE (08:07)
[2019-05-11] MEDS ORDERED: fentaNYL* 50 MCG/ML 2 ML VIAL (100 MCG VIAL) ONE ×2 (08:07)
[2019-05-11] MEDS ORDERED: Midazolam* 1 MG/ML 2 ML VIAL (2 MG) ONE (08:07)
[2019-05-11] MEDS ORDERED: Bupivacaine 0.5% SDV PF* 30ML VIAL ONE (08:09)
[2019-05-11] MEDS ORDERED: Lidocaine 2% PF* 10 ML AMP ONE (08:09)
[2019-05-11] MEDS ORDERED: Ondansetron ODT TAB* 4 MG PO PRN (08:45)
[2019-05-11] MEDS ORDERED: Polyethylene Glycol 3350* 17 GM PACKET PO PRN (08:45)
[2019-05-11] MEDS ORDERED: Cyclobenzaprine TAB* 10 MG PO PRN (08:45)
[2019-05-11] MEDS ORDERED: Magnesium Hydroxide LIQ* 30 ML UDC PO PRN (08:45)
[2019-05-11] MEDS ORDERED: diPHENhydraMINE IV* 50 MG/ML 1 ml VIAL (BENADRYL) IV PRN ×2 (08:45→09:32)
[2019-05-11] MEDS ORDERED: diPHENhydraMINE PO* 25 MG PO PRN (08:45)
[2019-05-11] MEDS ORDERED: Ondansetron INJ* 2 MG/ML VIAL IV PRN ×2 (08:45→09:32)
[2019-05-11] MEDS ORDERED: EPHEDrine (Pressors)* 50 MG/ML VIAL ONE (08:52)
[2019-05-11] MEDS ORDERED: ADALIMUMAB 20 MG SUBCUT SCH (09:00)
[2019-05-11] MEDS ORDERED: Naloxone* 0.4 MG/ML 1 ML VIAL IV PRN (09:32)
[2019-05-11] MEDS ORDERED: oxyCODONE TAB* 5 MG TAB PO PRN (09:32)
[2019-05-11] MEDS ORDERED: fentaNYL* 50 MCG/ML 2 ML VIAL (100 MCG VIAL) IV PRN (09:32)
[2019-05-11] MEDS ORDERED: PROCHLORPERAZINE INJ 5 MG/ML 2 ML VIAL IV PRN (09:32)
[2019-05-11] MEDS ORDERED: Mineral Oil Sterile, TOPICAL* 25 ML BTL ONE (09:44)
[2019-05-11] MEDS ORDERED: Propofol* 10 MG/ML 20 ML BTL ONE ×2 (10:31→10:57)
[2019-05-11] MEDS ORDERED: Dextrose 50% VIAL 50 ml IV PUSH PRN (14:11)
[2019-05-11] MEDS: Lactated Ringers 1000 ML Bag* 1,000 ML IV SCH (14:28)
--- NOTE | 2019-05-11 15:01 | CONS ---
CC: Dr. Valerie Ruiz; Matt Soto NP * CONSULTATION REPORT: DATE OF CONSULT: 05/11/19 TIME OF EVALUATION: 12:45 p.m. REQUESTING PHYSICIAN: Dr. Valerie Ruiz. PRIMARY CARE PROVIDER: Matt Soto NP REASON FOR CONSULT: Management of comorbidities. HISTORY OF PRESENT ILLNESS: Mr. Zarate is a 58-year-old male with a past medical history of type 2 diabetes, GERD, psoriasis, osteoarthritis, who has been followed by Dr. Ruiz with complaints of left knee pain that failed conservative treatment. He was admitted for left knee arthroplasty and the hospitalist service was consulted for management of comorbidities. At the time of evaluation, the patient was recovering in PACU and at that point he had no pain and he is not able to move his lower extremities yet. PAST MEDICAL HISTORY: 1. Type 2 diabetes. 2. GERD. 3. Psoriasis. 4. Osteoarthritis. 5. Obesity with a BMI of 32. 6. The patient had positive Cologuard and underwent colonoscopy in February 2019 with 4 colon polyps and pathology report was of tubular adenoma with no high- grade dysplasia or malignancy and 3 hyperplastic polyps. PAST SURGICAL HISTORY: Status post umbilical hernia repair as an infant. MEDICATION LIST: 1. Humira 20 mg subcutaneously every 2 weeks. 2. Tramadol 50 mg p.o. q.6 hours p.r.n. pain. ALLERGIES: With FLU VACCINE, the patient had redness at the injection site. FAMILY HISTORY: Diabetes and cancer. 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 He is a smoker 1 pack per day since age 17. He drinks alcohol 2 to 3 drinks a day. No history of drug use. Surrogate decision maker is his , Judi Zarate, phone number is [phone]. REVIEW OF SYSTEMS: A 14-point review of systems was performed and all the pertinent negative and positive findings are in the HPI. PHYSICAL EXAM: Vital Signs: Temperature 97, heart rate is 54, respiratory rate is 20, oxygen saturation is 99% on room air, blood pressure is 124/65. General: The patient is a pleasant gentleman, lying in bed, in no acute distress. HEENT: Pupils are equal. Moist mucous membranes. CVS: Normal S1, S2. Regular rate and rhythm. Chest: Breath sounds present bilaterally with no added sounds. Extremities: The patient has a Cryo unit to the left knee. Good pulses. Not able to move yet and sensation has not yet returned. Neuro: He is alert and oriented x3. Able to move all 4 extremities and follow simple commands. ASSESSMENT AND PLAN: Mr. Zarate is a 58-year-old male with a past medical history of obesity with a BMI of 32, type 2 diabetes, gastroesophageal reflux disease, psoriasis, admitted for elective total knee arthroplasty. 1. Left total knee arthroplasty. Management as per Orthopedics. 2. Type 2 diabetes. His diabetes is well controlled as an outpatient with a hemoglobin A1c of 6.1. He will be placed on a consistent carb diet and we will monitor his fingersticks and cover with a lispro sliding scale as needed. 3. DVT prophylaxis: The patient will have apixaban as per Orthopedics. 4. Code status is full. TIME SPENT: Approximately 45 minutes was spent with the patient's interview, medical records review, physical examination to complete this consultation, more than half of this time was spent gerg-ci-[id number] with the patient and coordination of care. [id number]/[facility] #: [id number] PRANAV
--- NOTE | 2019-05-11 15:11 | PN ---
Progress Note - Progress Note Date of Service: 05/11/19 SOAP: POST OP NOTE Pt was seen laying in bed comfortably. He states that he is starting to notice some aching in his knee at this point. He denies any chest pain or SOB. +df/pf, NVI. POD 0 TKA
[2019-05-11] MEDS: Acetaminophen TAB* 325 MG PO SCH (15:16)
[2019-05-11] MEDS: traMADol TAB* 50 MG PO PRN ×2 (15:16→21:34)
[2019-05-11] MEDS: Vitamin THERAPEUTIC TAB PO SCH (15:33)
[2019-05-11] MEDS: Docusate CAP* 100 MG PO SCH ×2 (15:33→21:34)
[2019-05-11] MEDS: Magnesium Hydroxide LIQ* 30 ML UDC PO SCH ×2 (15:33→21:35)
[2019-05-11] MEDS: Insulin LISPRO* 1 UNITS UNIT SUBCUT SCH (16:22)
--- NOTE | 2019-05-11 16:48 | OP ---
Operative Report - Blank - Operative Report Date of Operation: 05/11/19
--- NOTE | 2019-05-11 17:05 | OP ---
Operative Report - Blank - Operative Report Date of Operation: 05/11/19 Note: LASHA NOBLE 1960 Date of Surgery: 05/11/19 Valerie Ruiz MD Lead Electrical Engineer: Jeanna LUCERO did help throughout the procedure with preparation of the knee, wound retraction, manipulation of the knee, and wound closure. Anesthesiologist: Jessa TURNER Anesthesia Type: Spinal Preoperative Diagnosis: Left severe degenerative osteoarthritis of the knee Postoperative Diagnosis: As above Procedure Performed: Left Total Knee Arthroplasty Tourniquet time: 79 minutes Complications: None Specimen: Bone and cartilage from the left knee joint sent to pathology. Hardware Used: Cemented [place] and Nephew total knee hardware was used - For the femur a size 5 left oxinium legion posterior stabilized femoral component, for the tibia a size 5 left robel II tibial baseplate, for the insert a size 9mm 5 -6 posterior stabilized articular polyethylene insert, and for the patella a size 35 3-peg all poly patella. Brief History/Indication: LASHA NOBLE was known in clinic and had a history of severe left knee pain and swelling. He failed conservative treatment with anti-inflammatories, pain pills, intra-articular injections and physical therapy. He elected to undergo left total knee arthroplasty due to continued pain and decreased quality of life. Radiographs showed severe end stage osteoarthritis of the knee with bone on bone contact. Informed consent was obtained from the patient. He understood the risks of surgery included but were not limited to: bleeding, infection, damage to nearby structures, intraoperative fracture, nerve palsy, failure of the hardware, early loosening, knee stiffness or loss of motion, anesthesia complications, stroke, heart attack , blood clot and . He wished to proceed. He chose to have the navio robotic knee system and accepted the additional pin site risks. Intra-Operative Findings: Intraoperatively the patient was noted to have severe loss of cartilage in all 3 compartments of the knee. Description of the Procedure: LASHA NOBLE was identified in the preanesthesia unit. His left knee was marked as the correct operative side. Informed consent was signed and placed in the chart. The patient was taken to the operating room and placed under anesthesia without complication. A alvarenga catheter was placed. A tourniquet was placed on the left thigh. The left lower extremity was prepped and draped in the usual sterile fashion. Preoperative time-out was made to correctly identify the patient, side and site. Appropriate intraoperative antibiotics were given within one hour of incision. Tourniquet was inflated. A midline incision was made and carried sharply down to the extensor mechanism. A new 10 blade was used to make a standard medial parapatellar arthrotomy. The patella was subluxed laterally. Electrocautery was used to dissect soft tissue off the superomedial tibia to the midsagittal plane. The knee was flexed up. The anterior horn of the lateral meniscus and the ACL/PCL were sharply incised. A checkpoint screw was placed in the femur and the tibia. Two pins were placed in the femur and two in the tibia. The [employer] robotic system was used to anatomically map the anatomy. The hardware placement was planned using the [employer] system. The [employer] robotic hesham was used to make the distal femoral cut. The external rotation guide was pinned on the distal femur and the distal femur was sized to a size 5. The size 5 multi-cutting jig was pinned on the distal femur. The oscillating saw was used to make the appropriate 4 chamfer cuts. Next the PCL was completely released. The extramedullary tibial cutting guide was pinned on the proximal tibia and the cutting angles were determined using the [employer] angle device. The oscillating saw was used to make the proximal tibial cut perpendicular to the mechanical axis of the tibia. The bone was carefully removed. The knee was brought out into full extension. The spacer block was placed and had excellent fit with the knee in full extension. The medial and lateral ligaments were well balanced. The flexion and extension gaps were well balanced. The knee was flexed up. Lamina business unit manager was placed both medially and laterally. Any remaining meniscus was removed with electrocautery. Curved osteotome was used to remove any posterior osteophytes. The tibial tray and drop kim were placed and confirmed a satisfactory tibial cut. The size 5 left femoral trial was impacted onto the distal femur. This trial had excellent fit and stability. The box for the posterior stabilized implant was prepared using a box cut osteotome and a reamer. Next a tibial tray trial and 9 mm insert trial was placed. The knee was taken through a range of motion and had full extension to 130 degrees of flexion. Patellofemoral tracking was satisfactory. Final checkpoints were entered into the navLasso system. The two screws and the four pins were all removed without complication. The patella was inverted and sized to a size 35. Three peg holes were drilled through the size 35 drill guide. The trial patella was placed and the knee was taken through a range of motion. There was satisfactory patellofemoral tracking. All trials were removed. The tibia was subluxed anteriorly and sized to a size 5. The proximal tibial was prepared with a size 5 keel punch. All bony cut surfaces were irrigated with sterile saline and dried. Final implants were cemented into place starting with the tibia, followed by the femur, and last the patella. A 9 mm insert trial was placed and the knee was brought into full extension. Tourniquet was turned down and the knee was copiously irrigated with sterile saline. Electrocautery was used to obtain meticulous hemostasis. Once the cement had fully cured, the insert trial was removed. Any excess cement was removed from around the hardware and capsule. Final insert chosen was a 9 mm posterior stabilized Robel II articular insert size 5-6. Stability of the insert was checked and noted to be stable. The extensor mechanism was closed using number 1 vicryls. The rest of the incision was closed in a layered fashion using 0 and 2-0 vicryls. The skin was closed using 3-0 nylon suture. Sterile xeroform, 4x4s and webril were used to cover the incision. Nathaniel wrap and cold pack were used to cover the dressings. The patients anesthesia was reversed without difficulty. He was taken to the PACU in stable condition. Intended weight-bearing will be as tolerated.
[2019-05-11] MEDS: ceFAZolin 1 GM ADVAN(*) 1 GM in NS 0.9% 50 ML* 50 ML IVPB SCH (17:07)
[2019-05-11] MEDS: oxyCODONE/Acetamin 5/325 MG* TAB PO PRN (17:07)
[2019-05-11] MEDS: Morphine INJ* 2 MG/ML 1 ML SYRINGE (TWO MG - NEW SYRINGE VERSION) IV PRN ×2 (17:14→21:34)
[2019-05-11] MEDS ORDERED: LORazepam TAB(*) 0.5 MG PO PRN (18:41)
[2019-05-11] MEDS: oxyCODONE TAB* 5 MG TAB PO PRN (19:28)
[2019-05-12] MEDS: oxyCODONE/Acetamin 5/325 MG* TAB PO PRN ×3 (00:12→11:26)
[2019-05-12] MEDS: Lactated Ringers 1000 ML Bag* 1,000 ML IV SCH (00:13)
[2019-05-12] MEDS: Acetaminophen TAB* 325 MG PO SCH ×3 (00:20→14:12)
[2019-05-12] MEDS: ceFAZolin 1 GM ADVAN(*) 1 GM in NS 0.9% 50 ML* 50 ML IVPB SCH ×2 (01:19→08:51)
[2019-05-12] MEDS: oxyCODONE TAB* 5 MG TAB PO PRN ×2 (04:31→08:50)
[2019-05-12 05:34] LABS: Hematocrit 44 % (42-52); Hemoglobin 15.5 g/dL (14.0-18.0); Mean Platelet Volume 8.9 fL (7.4-10.4); Platelet Count 157 10^3/uL (150-450)
[2019-05-12 06:04] LABS: BUN/Creatinine Ratio 18.8 (8-20); Calcium 8.4 mg/dL (8.6-10.3); EGFR African American 112.4 (>60); EGFR Non-African American 92.9 (>60); Potassium 3.9 mmol/L (3.5-5.0)
[2019-05-12] MEDS: Insulin LISPRO* 1 UNITS UNIT SUBCUT SCH ×2 (07:22→13:21)
--- NOTE | 2019-05-12 08:45 | PN ---
Progress Note - Progress Note Date of Service: 05/12/19 SOAP: Subjective: Pt is doing well. Pain controlled. Denies CP/SOB, calf pain or F/C. Objective: PE- 58 y/o WDWN M NAD. A&Ox3 LLE- dressing c/d/i, calf soft NT, +DF/PF ankle, +2 Dp pulse, SILT distally Vital Signs Temp Pulse Resp BP Pulse Ox 98.9 F 78 17 122/72 97 05/12/19 08:19 05/12/19 08:19 05/12/19 08:19 05/12/19 08:19 05/12/19 08:19 Laboratory Results - last 24 hr 05/11/19 05/12/19 05/12/19 16:17 04:40 04:40 Hgb 15.5 Hct 44 Plt Count 157 MPV 8.9 Sodium 135 Potassium 3.9 Chloride 102 Carbon Dioxide 29 Anion Gap 4 BUN 16 Creatinine 0.85 Est GFR ( Amer) 112.4 Est GFR (Non-Af Amer) 92.9 BUN/Creatinine Ratio 18.8 Glucose 116 H POC Glucose (mg/dL) 87 Calcium 8.4 L Assessment: POD 1 left total Knee replacement Plan: WBAT cont PT/OT Eliquis for DVT prophylaxis Percocet for pain DC this evening versus tomorrow depending on how he does with PT. Dispo- Home with out pt PT DC Meds sent to [facility] pharmacy to be picked up today
[2019-05-12] MEDS: Vitamin THERAPEUTIC TAB PO SCH (08:50)
[2019-05-12] MEDS: Docusate CAP* 100 MG PO SCH (08:50)
[2019-05-12] MEDS: Magnesium Hydroxide LIQ* 30 ML UDC PO SCH (08:51)
[2019-05-12] MEDS ORDERED: Apixaban* 2.5 MG TAB PO SCH (09:00)
--- NOTE | 2019-05-12 11:24 | DS ---
Date of service 05/12/19 Date of Admission:05/11/19 Date of Discharge: [05/12/19] Date of Surgery: [05/11/19] Attending Orthopedic Provider: [Dr. Ruiz] Pre-operative Diagnosis: [Left knee OA] Operative Procedure: [Left total knee arthroplasty] Disposition of Patient: [Home with outpatient PT] Condition of Patient: [Stable] History: LASHA NOBLE is a 58 year old M with years of increasingly severe [left knee] pain. Patient has failed conservative management and has elected to undergo a [left] total [knee] replacement Hospital Course: LASHA was admitted to [facility] [place] on 05/11/19. Patient underwent a [left total knee arthroplasty] without complication followed by a brief recovery in PACU and transfer to the Short Stay Surgical Unit in stable condition. Our hospitalist service, physical therapy and occupational therapy also participated in this patients care. Post-op day 1: patient was alert and in no acute distress. Dressing was clean, dry and intact. Operative extremity dorsiflexion and plantarflexion intact, sensation intact to light touch distally. Patient was deemed to be medically and orthopedically stable for discharge. Physical therapy goals were met. Discharge Instructions following Orthopedic Surgery: Activity: * Weight Bearing as tolerated * Continue physical therapy and occupational therapy exercises as shown Wound care: * OK to shower on post-op day 3, no bathing, swimming, or submerging wound. * Use gentle soap, pat dry. Cover with gauze, BELINDA wrap or tape. Call Orthopedic office for: * Increased drainage * Redness * Increased pain * Fever Go to ER with shortness of breath or chest pain. Diet: * Regular diet * Increase fluids and fiber to prevent constipation. * Continue to use stool softeners, call office if no bowel motion within 48 hours. Medications See Home Medication List in your packet for medications that you should take after discharge. DVT Prophylaxis: Eliquis Dosin.5 mg, 1 tab every 12 hours x 30 days post op DO NOT take ibuprofen or naproxen while on eliquis Pain Control: Percocet Dosin/325 mg 1-2 tabs by mouth every 4-6 hours as needed for pain. Maximum of 10 tabs per day. Ok to take tramadol in addition to percocet only if percocet does not control the pain Cyclobenzaprine 10 mg take 1 tab every 8 hours as needed pain/muscle spasms Please note that Percocet contains Tylenol (acetaminophen). Maximum daily dose of Tylenol is 4000 mg from all sources. Antibiotics are required prior to any dental work. FOLLOW UP: Follow up with [Joseph] Within 10-14 days, call for appointment Please call our office with any questions or concerns ([phone]) RX to [facility] Active Medications Generic Name Dose Route Start Last Admin Trade Name Freq PRN Reason Stop Dose Admin Acetaminophen 975 mg 05/11/19 14:00 05/12/19 06:19 Tylenol Tab* PO Not Given Q8HR BRIGIDA Apixaban 2.5 mg 05/12/19 09:00 05/12/19 08:50 Eliquis* PO 2.5 mg BID BRIGIDA Administration Bisacodyl 10 mg 05/13/19 08:45 Dulcolax Supp* ME DAILY PRN CONSTIPATION Cyclobenzaprine HCl 10 mg 05/11/19 08:45 05/11/19 18:25 Flexeril Tab* PO 10 mg Q6H PRN Administration SPASMS Dextrose 25 ml 05/11/19 14:11 Dextrose 50% Vial 50 Ml* IV PUSH .FOR FS < 60 - SS PRN FS < 60 Diphenhydramine HCl 25 mg 05/11/19 08:45 Benadryl Iv* IV Q6H PRN PRURITIS Diphenhydramine HCl 25 mg 05/11/19 08:45 Benadryl Po* PO Q6H PRN PRURITIS Docusate Sodium 100 mg 05/11/19 09:00 05/12/19 08:50 Colace Cap* PO 100 mg BID BRIGIDA Administration Lactated Ringer's 1,000 mls @ 100 mls/hr 05/11/19 09:00 05/12/19 00:13 Lactated Ringers 1000 Ml Bag* IV 100 mls/hr PER RATE BRIGIDA Administration Insulin Human Lispro 0 units 05/11/19 16:30 05/12/19 07:22 Humalog* SUBCUT Not Given AC [facility] Protocol Lactulose 30 ml 05/11/19 08:45 Lactulose* PO BID PRN CONSTIPATION Lorazepam 0.5 mg 05/11/19 18:41 05/11/19 19:18 Ativan Tab(*) PO 0.5 mg Q6H PRN Administration ANXIETY Magnesium Hydroxide 30 ml 05/11/19 09:00 05/12/19 08:51 Milk Of Magnesia Liq* PO 30 ml BID BRIGIDA Administration Magnesium Hydroxide 30 ml 05/11/19 08:45 Milk Of Magnesia Liq* PO Q6H PRN CONSTIPATION Morphine Sulfate 2 mg 05/11/19 08:45 05/11/19 21:34 Morphine Inj (Syringe))* IV 2 mg Q4H PRN Administration Pain - Unrelieved Multivitamins 1 tab 05/11/19 09:00 05/12/19 08:50 Theragran Tab* PO 1 tab DAILY BRIGIDA Administration Ondansetron HCl 4 mg 05/11/19 08:45 Zofran Inj* IV Q6H PRN NAUSEA Ondansetron HCl 4 mg 05/11/19 08:45 Zofran Odt Tab* PO Q6H PRN NAUSEA Oxycodone HCl 10 mg 05/11/19 08:45 05/12/19 08:50 Roxycodone Tab* PO 10 mg Q4H PRN Administration Pain - Breakthrough Oxycodone/Acetaminophen 2 tab 05/11/19 08:45 05/12/19 06:21 Percocet 5/325 Tab* PO 2 tab Q4H PRN Administration PAIN - SEVERE Polyethylene Glycol/Electrolytes 17 gm 05/11/19 08:45 Miralax* PO DAILY PRN Constipation Tramadol HCl 50 mg 05/11/19 08:45 05/11/19 21:34 Ultram* PO 50 mg Q6H PRN Administration PAIN - MODERATE
[2019-05-12 12:29] VITALS: BP 131/74
[2019-05-12] MEDS: traMADol TAB* 50 MG PO PRN (13:51)
[2019-05-13] MEDS ORDERED: Bisacodyl SUPP* 10 MG SUPP PR PRN (08:45)
== END 2019-05-12 15:00 | disposition home or self-care (01) | DRG 302 ==
LOC: AA 06:37 → SSU 14:11
PROVIDERS: ADMIT Orthopaedic Surgery Adult Reconstructive Orthopaedic Surgery; ATTEND Orthopaedic Surgery Adult Reconstructive Orthopaedic Surgery
PROC: 0SRD069 Replacement of Left Knee Joint with Oxidized Zirconium on Polyethylene Synthetic Substitute, Cemented, Open Approach (ICD-10-PCS; principal; 2019-05-11 08:30)
DX: M17.12 Unilateral primary osteoarthritis, left knee (principal); E11.9 Type 2 diabetes mellitus without complications; F17.210 Nicotine dependence, cigarettes, uncomplicated; E66.9 Obesity, unspecified; K21.9 Gastro-esophageal reflux disease without esophagitis; L40.9 Psoriasis, unspecified; M25.762 Osteophyte, left knee; Z72.89 Other problems related to lifestyle; Z68.32 Body mass index [BMI] 32.0-32.9, adult; Z88.7 Allergy status to serum and vaccine; Z80.9 Family history of malignant neoplasm, unspecified; Z79.4 Long term (current) use of insulin
CPT/HCPCS: 36415; 80048; 85014; 85018; 85049; 85730; 88305; 88311; A9270-GY; C1776; J0690; J2001; J2250; J2270; J2704; J2795; J3010; J3490